=== PATIENT | female | born 1960 | race Hispanic/Latino ===

== ENCOUNTER → 2016-06-24 | Outpatient (CLI) | payer OTHER ==
[~2016-06-24] MED LIST: LIDOCAINE 2% MDV 20 ML VIAL As Ordered ONE; LIDOCAINE 4% CREAM 5GM (LMX4) As Ordered ONE; SODIUM TETRADECYL SULFATE(3%)30MG/ML 2ML VIAL (SOTRADECOL) As Ordered ONE
--- NOTE | 2016-06-24 16:02 | REPKIM ---
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 Patient has failed conservative treatment; c/o persistent symptoms that are refractory more than a 3 month course of conservative therapy; utilization of compressive stockings and leg elevation. Duplex US reflux evaluation of the right leg showed significant reflux in the lesser saphenous vein for a duration of 6.8 seconds, AP dimension of that vessel is 6 mm. An incompetent enterprise systems engineer/ collateral is seen in the mid calf level. This also showed reflux involving the deep system. Right common femoral vein demonstrates reflux. Duration is 1.9 seconds. Reflux is seen throughout the superficial femoral vein, duration centrally 2.5 seconds, mid aspect 2.4 seconds, and peripherally 1.5 seconds. Reflux is seen in the right popliteal vein, duration 3.2 seconds. No reflux is seen in the greater saphenous vein. PROCEDURE: Endovenous laser ablation therapy of the incompetent LSV on the right INTERVENTIONALIST: Min Luna MD EBL: 2 mL MEDICATIONS: Local Lidocaine DEVICE USED: 25-CM [facility] Lot#[id number] TECHNIQUE AND FINDINGS: Informed consent was obtained prior to the procedure. The patient was placed supine on the table. A time out was performed that verified correct procedure, site, side and materials available. Ultrasound examination was performed and focused on the saphenopopliteal junction of the right leg. This showed significant reflux involving the lesser saphenous vein as previously described. Collateral varicosities also noted off the LSV at the mid calf level. The right lower extremity was prepped and draped in the usual sterile fashion. After local anesthesia with 1mL of lidocaine 1% at the skin, the incompetent lesser saphenous vein below the mid calf level was accessed with a 21 gauge needle and a 0.018" wire followed by a 4 Gambian sheath of the EVLT kit. The sheath was advanced over the wire to the saphenopopliteal junction level and the laser fiber was advanced coaxially and its tip was positioned approximately 4 cm distal from the saphenopopliteal junction. Tumescent anesthesia was given along this vein by using real-time ultrasonographic guidance and a 22 gauge spinal needle and a mixture of diluted lidocaine (12.5mL @ 2% in 237.5mL of normal saline). Endovenous laser ablation was applied along the lesser saphenous vein using 6 Gill in continuous mode for a total duration of 181 seconds. A total of 1084 Joules was delivered. Ultrasonography showed shrunken and hyper-echoic of the ablated vein as usually , with persistent fully compressibility of deep veins. A small amount of sclerotherapy foam (1mL sodium tetradecyl sulfate diluted at 1.5 %) mixed with air at a ratio of 1:4 injected via the sheath just before the catheter was removed. Compression was maintained. SteriStrips was applied on the skin, followed by 20-30 mm Hg compression stockings. The patient was then allowed to stand and instructed to walk for 15 minutes. She was then discharged back home in good and stable condition with no immediate complication. This procedure was performed with ultrasound guidance. Dr. Luna was present. IMPRESSION: Successful treatment of symptomatic incompetent LSV in the right lower extremity by endovenous laser ablation. PLAN: She was given post-procedure instructions, including contact information for a follow-up duplex ultrasound of the right lower extremity to rule out DVT and post EVLT evaluation in next several days. Patient was advised to continue utilization of compressive stockings and leg elevation since significant reflux also noted involving the deep system. cc: MD JOSE Bazzi
== END | disposition home or self-care (01) ==
LOC: M IRPRO 08:23
DX: I83.811 Varicose veins of right lower extremity with pain (principal); I83.891 Varicose veins of right lower extremity with other complications
CPT/HCPCS: 36478; C1888

== ENCOUNTER → 2016-06-26 | Outpatient (CLI) | payer OTHER ==
--- NOTE | 2016-06-26 12:53 | REP ---
Duplex extremity venous ultrasound: Right lower extremity. History: The patient is status post EVLT therapy lesser saphenous vein on the right. Followup study. Findings: The deep veins are anechoic and fully compressible from the groin to the popliteal fossa in the right lower extremity. Color flow imaging is homogeneous. Spectral Doppler interrogation demonstrates intact respiratory variation in flow and normal manual augmentation of flow. There is no evidence of deep vein thrombosis. There is thrombosis seen in the lesser saphenous vein as expected post-treatment extending to within 0.5 cm of the popliteal vein. Impression: There is post-treatment thrombosis in the lesser saphenous vein status post EVLT as expected. The thrombus is 0.5 cm from the popliteal vein but not within the popliteal vein. Otherwise negative right lower extremity duplex venous ultrasound. No evidence of deep vein thrombosis. Signed by Celestine Hernandez MD 06/26/2016 12:45 P
== END ==
LOC: M RAD 10:11
DX: I83.891 Varicose veins of right lower extremity with other complications (principal)

== ENCOUNTER → 2016-11-13 | Outpatient (CLI) | payer OTHER ==
--- NOTE | 2016-11-17 09:28 | DEXA ---
AP SPINE L1 - L4 0.848 -2.8 -1.8 LT FEMUR TOTAL 0.739 -2.1 -1.4 RT FEMUR TOTAL 0.693 -2.5 -1.4 TOTAL BODY TOTAL OTHER DUAL FEMUR FRAX* ASSESSMENT Risk factors: Fracture as an adult. 10 year probability of fracture Major osteoporotic fracture 10.3 % Hip fracture 2.4 % COMMENTS: There is low bone density of the left hip. There is osteoporosis of the spine. There is osteoporosis of the right hip. The decreased density of the spine does represent a significant change. The decreased density of the left hip does not represent a significant change. The increased density of the right hip does not represent a significant change. The density of the spine has increased 4.2% since the initial exam on 2010. The spine density has decreased 2.9% since the most recent exam on 09/07/2014. The density of the left hip has increased 2.1% since the initial exam on 2010. The density of the left hip has decreased 1.3% since the most recent exam on 08/2014. The density of the right hip has increased 1.6% since the initial exam on 2010. The density of the right hip has increased 0.4% since the most recent exam on . FOLLOW-UP: Recommendation for the next bone density exam: 2 years. JOSE
== END ==
LOC: M WHC 09:58
PROVIDERS: ATTEND Internal Medicine Endocrinology, Diabetes & Metabolism
DX: Z12.31 Encounter for screening mammogram for malignant neoplasm of breast (principal); M81.0 Age-related osteoporosis without current pathological fracture

== ENCOUNTER → 2016-11-13 | Outpatient (CLI) | payer OTHER ==
--- NOTE | 2016-11-13 11:36 | REPMRS ---
Patient History The patient states she has not had a clinical breast exam in over a year. Patient is postmenopausal. No known family history of cancer. Digital Woman Screen Mammo: November 13, 2016 - Exam #: [id number] Bilateral CC and MLO view(s) were taken. Technologist: Naye Petersen Technologist Prior study comparison: October 03, 2015, digital woman screen mammo performed at [facility] to [facility]. September 07, 2014, digital woman screen mammo performed at [facility] to [facility]. July 20, 2012, digital woman screen mammo performed at [facility] to [facility]. FINDINGS: There are scattered fibroglandular densities. There has been no change in the appearance of the mammogram from the prior studies. There is a mild amount of scattered fibroglandular density which is fairly symmetric. There is no interval development of dominant mass, architectural distortion, or clustered microcalcification suggestive of malignancy. ASSESSMENT: BI-RADS/ACR category 1 mammogram. Negative. Recommendation Routine screening mammogram in 1 year (for women over age 40). This mammogram was interpreted with the aid of an FDA-approved computer-aided dectection system. Electronically Signed By: Ellis Hernandez MD 11/13/16 [id number]
== END ==
LOC: M WHC 09:49
PROVIDERS: ATTEND Family Medicine
DX: Z12.31 Encounter for screening mammogram for malignant neoplasm of breast (principal)

== ENCOUNTER 2017-03-05 07:45 | Outpatient (RCR) | payer OTHER | END 2017-03-06 | LOC: M PT 07:45 | PROVIDERS: ATTEND Otolaryngology | DX: Z51.89 Encounter for other specified aftercare (principal); M26.609 Unspecified temporomandibular joint disorder, unspecified side ==

== ENCOUNTER → 2018-01-06 | Outpatient (CLI) | payer OTHER | LOC: M WHC 09:42 | DX: Z12.31 Encounter for screening mammogram for malignant neoplasm of breast (principal) | CPT/HCPCS: 77067 ==

== ENCOUNTER → 2018-01-13 | Outpatient (CLI) | payer OTHER | LOC: M RAD 10:58 | DX: I87.2 Venous insufficiency (chronic) (peripheral) (principal) | CPT/HCPCS: 93970 ==

== ENCOUNTER → 2019-03-28 | Outpatient (CLI) | payer OTHER ==
--- NOTE | 2019-03-28 14:15 | REPMRS ---
Patient History The patient states she has not had a clinical breast exam in over a year. Patient is postmenopausal. No known family history of cancer. 3D TOMOSYNTHESIS WAS PERFORMED. [facility] lifetime risk for breast cancer is 5.3%. Digital Woman Screen Mammo: March 28, 2019 - Exam #: [id number] Bilateral CC and MLO view(s) were taken. Technologist: Naye Petersen Technologist Prior study comparison: January 06, 2018, bilateral digital woman screen mammo performed at [facility]. November 13, 2016, digital woman screen mammo performed at [facility] [place] [facility]. FINDINGS: There are scattered fibroglandular densities. There has been no change in the appearance of the mammogram from the prior studies. There is a mild amount of residual fibroglandular tissue which is fairly symmetric. There is no interval development of dominant mass, architectural distortion, or clustered microcalcification suggestive of malignancy. Assessment: BI-RADS/ACR category 1 mammogram. Negative Mammogram. Recommendation Routine screening mammogram in 1 year (for women over age 40). This mammogram was interpreted with the aid of an FDA-approved computer-aided dectection system. Electronically Signed By: Vineet Valdovinos MD 03/28/19 [id number]
--- NOTE | 2019-04-03 15:51 | DEXA ---
AP SPINE L1 - L4 0.794 -3.2 -2.1 LT FEMUR TOTAL 0.751 -2.0 -1.1 LT NECK 0.711 -2.4 -1.1 RT FEMUR TOTAL 0.676 -2.6 -1.7 RT NECK 0.663 -2.7 -1.5 TOTAL BODY TOTAL OTHER COMMENTS: There is low bone density of the left hip. There is osteoporosis of the spine. There is osteoporosis of the right hip. The decreased density of the spine does represent a significant change. The increased density of the left hip does not represent a significant change. The decreased density of the right hip does represent significant change. The density of the spine has decreased 2.5% since the initial exam on 09/09/2010. The spine density has decreased 6.4% since the most recent exam on 11/13/2016. The density of the left hip has increased 3.7% since the initial exam on 09/09/2010. The density of the left hip has increased 1.6% since the most recent exam on 11/13/2016. The density of the right hip has decreased 0.9% since the initial exam on 09/09/2010. The density of the right hip has decreased 2.5% since the most recent exam on 11/13/2016. FOLLOW-UP: Recommendation for the next bone density exam: 2 years. JOSE
== END ==
LOC: M WHC 12:18
PROVIDERS: ATTEND Family Medicine
DX: Z12.31 Encounter for screening mammogram for malignant neoplasm of breast (principal); M81.0 Age-related osteoporosis without current pathological fracture; Z78.0 Asymptomatic menopausal state